=== PATIENT | male | born 2000 | race American Indian/Alaskan Native ===

== ENCOUNTER 2020-06-09 21:34 | Emergency (ER) | payer SELFPAY ==
[2020-06-09 22:22] VITALS: BP 135/93
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
== END 2020-06-09 23:59 | disposition home or self-care (01) ==
LOC: ED 21:34
DX: S09.90XA Unspecified injury of head, initial encounter (principal); Z79.899 Other long term (current) drug therapy; Y08.89XA Assault by other specified means, initial encounter; Y93.89 Activity, other specified; Y92.89 Other specified places as the place of occurrence of the external cause; Y99.8 Other external cause status
CPT/HCPCS: 70450; 99283